=== PATIENT | female | born 1985 | race Caucasian/White ===

== ENCOUNTER 2018-11-08 11:09 | Day surgery (SDC) | payer OTHER ==
[~2018-11-08] VITALS: Ht 165.1 cm; Wt 97.1 kg
[~2018-11-08 11:09] MED LIST: LIDOCAINE 2% (SDV) 5 ML INJ ONE; PREN-39 PO
[2018-11-08 11:42] VITALS: Ht 165.1 cm; Wt 97.1 kg
[2018-11-08] MEDS ORDERED: NO MEDS. (11:52)
[2018-11-08 12:12] VITALS: BP 109/71; PULSE 80; RESP 19
[2018-11-08] MEDS ORDERED: PROPOFOL 20 ML ONE (13:05)
[2018-11-08] MEDS ORDERED: FENTAnyl 50 MCG/ML VIAL ONE (13:05)
[2018-11-08 13:45] VITALS: BP 124/70; PULSE 92; RESP 14
--- NOTE | 2018-11-08 13:48 | PREAC ---
Date/Time of Note Date/Time of Note DATE: 11/08/18 TIME: 13:47 Anesthesia Eval and Record Evaluation Time Pre-Procedure Interview DATE: 11/08/18 TIME: 13:47 Age 33 Sex female NPO: 8 hrs Preoperative diagnosis reflux esophagitis Planned procedure egd Past Medical History Past Medical History: Includes GI: Obesity Surgery & Anesthesia Issues No known issue Meds Anticoagulation: No Beta Carson within 24 hr: No Reason Beta Carson not given: Pt. not on B-Carson Reported Medications [No Meds.] No Conflict Check 11/08/18 Discontinued Reported Medications Vits W-Ca,Fe,Fa(<1MG) ( Vitamins) 1 Tab Tablet, 1 TAB PO DAILY for 7 Days 03/20/15 Meds reviewed: Yes Allergies Coded Allergies: No Known Allergy (Unverified , 11/08/18) Allergies Reviewed: Yes Labs/Studies Labs Reviewed: Reviewed by anesthesiologist test: N/A Pre-procedure Exam Last vitals Vital Signs Date Temp Pulse Resp B/P (MAP) Pulse Ox O2 O2 Flow FiO2 Time Delivery Rate 11/08/18 97.8 80 19 109/71 99 Room Air 12:12 (84) Airway: Adequate mouth opening, Adequate thyromental dist Mallampati: Mallampati III Teeth: Normal Lung: Normal Heart: Normal ASA Physical Status ASA physical status: 2 Emergency: None Pre-operative Attestations Prior to commencing anesthesia and surgery, the patient was re-evaluated, there was verification of: *The patient's identity *The results of appropriate recent lab work and preoperative vital signs *The above evaluation not changing prior to induction *Anesthetic plan, risk benefits, alternative and complications discussed with patient/family; questions answered; patient/family understands, accepts and wishes to proceed. MAIKEL CONNER DO Nov 08, 2018 13:48
== END 2018-11-08 14:09 | disposition home or self-care (01) ==
LOC: GIL 11:09
PROVIDERS: ATTEND Internal Medicine Gastroenterology
DX: K44.9 Diaphragmatic hernia without obstruction or gangrene (principal); K21.0 Gastro-esophageal reflux disease with esophagitis
CPT/HCPCS: 43239; 84703; 88305; 88312; J3010; Z7610